=== PATIENT | female | born 1990 | race Caucasian/White ===

== ENCOUNTER 2018-12-28 16:47 | Inpatient (IN) | payer BC, OTHER ==
[~2018-12-28] VITALS: Ht 162.6 cm; Wt 133.6 kg
[~2018-12-28 16:47] MED LIST: CEPH500 PO; CIPR500 PO; DIPH50 PO; IBUP800 PO; OCELLA PO; ONDA4 PO; PRED20 PO
[2018-12-28 18:20] LABS: BASOPHILS ABSOLUTE AUTO 0.03 K/mm3 (0.00-0.23); BASOPHILS PERCENT AUTO 0 % (0-2); EOSINOPHILS ABSOLUTE AUTO 0.04 K/mm3 (0.00-0.68); EOSINOPHILS PERCENT AUTO 0 % (0-6); Hematocrit 41.9 % (33.0-51.0); Hemoglobin 14.1 g/dL (11.5-16.0); IMMATURE GRAN ABSOLUTE AUTO 0.05 K/mm3 (0.00-0.10); IMMATURE GRAN PERCENT AUTO 0 % (0-1); LYMPHOCYTES ABSOLUTE AUTO 1.58 K/mm3 (0.84-5.20); LYMPHOCYTES PERCENT AUTO 13 % (21-46); MONOCYTES ABSOLUTE AUTO 0.83 K/mm3 (0.16-1.47); MONOCYTES PERCENT AUTO 7 % (4-13); Mean Corpuscular HGB 29.1 pg (26.0-34.0); Mean Corpuscular HGB Conc 33.7 g/dL (31.5-36.5); Mean Corpuscular Volume 87 fL (80-100); Mean Platelet Volume 10.6 fL (9.1-12.4); NEUTROPHILS ABSOLUTE AUTO 9.83 K/mm3 (1.96-9.15); NEUTROPHILS PERCENT AUTO 80 % (41-73); Platelet Count 273 K/mm3 (150-400); RDW Coefficient Variation 14.6 % (11.7-14.2); RDW Standard Deviation 45.6 fL (35.1-46.3); Red Blood Cell Count 4.84 M/mm3 (3.80-5.20); White Blood Cell Count 12.36 K/mm3 (4.00-11.30)
[2018-12-29 05:16] LABS: PCO2 Cord - Arterial 50.9 mmHg (40-50); PO2 Cord - Arterial 15.5 mmHg (16-20); pH Cord - Arterial 7.32 (7.28-7.35)
[2018-12-29 05:17] LABS: PO2 Cord - Venous 20.9 mmHg (28-32); pH Umbilical Cord - Venous 7.34 (7.26-7.35)
--- NOTE | 2018-12-29 05:23 | NUR ---
12/29/18 0523 InoPearl A BABY BORN AT 0504. SEGMENT OF UMBILICAL CORD GIVEN TO RT. SAMPLE OF BLOOD FROM UMBILICAL CORD GIVEN TO FBP RN.
[2018-12-30 05:33] LABS: BASOPHILS ABSOLUTE AUTO 0.04 K/mm3 (0.00-0.23); BASOPHILS PERCENT AUTO 0 % (0-2); EOSINOPHILS ABSOLUTE AUTO 0.18 K/mm3 (0.00-0.68); EOSINOPHILS PERCENT AUTO 2 % (0-6); Hematocrit 32.4 % (33.0-51.0); Hemoglobin 10.6 g/dL (11.5-16.0); IMMATURE GRAN ABSOLUTE AUTO 0.07 K/mm3 (0.00-0.10); IMMATURE GRAN PERCENT AUTO 1 % (0-1); LYMPHOCYTES ABSOLUTE AUTO 1.42 K/mm3 (0.84-5.20); LYMPHOCYTES PERCENT AUTO 12 % (21-46); MONOCYTES ABSOLUTE AUTO 0.86 K/mm3 (0.16-1.47); MONOCYTES PERCENT AUTO 7 % (4-13); Mean Corpuscular HGB 29.9 pg (26.0-34.0); Mean Corpuscular HGB Conc 32.7 g/dL (31.5-36.5); Mean Platelet Volume 10.7 fL (9.1-12.4); NEUTROPHILS ABSOLUTE AUTO 9.65 K/mm3 (1.96-9.15); NEUTROPHILS PERCENT AUTO 79 % (41-73); Platelet Count 216 K/mm3 (150-400); RDW Coefficient Variation 14.9 % (11.7-14.2); RDW Standard Deviation 49.9 fL (35.1-46.3); Red Blood Cell Count 3.55 M/mm3 (3.80-5.20); White Blood Cell Count 12.22 K/mm3 (4.00-11.30)
[2018-12-30 05:35] LABS: Mean Corpuscular Volume 91 fL (80-100)
--- NOTE | 2018-12-30 11:00 | NUR ---
0800- PT STILL COMPLAINS OF RIGHT LEG BEING NUMB AT HER THIGH ONLY. FEET AND CALF FEELING NORMAL BUT VERY NUMB AND HEAVY FEELING WHEN LIFTING IT OFF THE BED. WILL CONSULT WITH PROVIDER WHEN MAKING ROUNDS.
--- NOTE | 2018-12-30 11:01 | NUR ---
09- JOSEPH ASSESSED RIGHT LEG AND IF NOT IMPROVING BY AFTERNOON WITH CALL DR JIM TO ASSESS.
--- NOTE | 2018-12-30 11:25 | NUR ---
1100- DR JIM IN HOUSE AND WAS THE ONE THAT PLACED HER EPIDURAL. UPDATED ON RIGHT THIGH STILL BEING NUMB. HE SAID TO TRY TO GET HER UP AND SEE HOW SHE DOES AND GIVE IT A LITTLE MORE TIME. WILL UPDATE BY THIS AFTERNOON IF IT DOESNT IMPROVE. PT HAS NO OTHER COMPLAINTS.
--- NOTE | 2018-12-30 13:56 | NUR ---
RIGHT THIGH CONTINUES TO FEEL NUMB AND HEAVY. 2 PEOPLE ASSIST AT BEDSIDE AND PT ABLE TO STAND LONG SHE DOESNT BEND HER KNEE. ASSISTED TO BATHROOM. VOID #1 AND LINENS CHANGED. WILL TRY FOR A SHOWER NEXT TIME. 2 PERSON ASSIST BACK TO BED. CALL LIGHT CLOSE AND WILL CALL WHEN NEEDING TO VOID.
--- NOTE | 2018-12-30 18:37 | NUR ---
PT UP AND AMBULATED TO BATHROOM AGAIN. LESS ASSISTANCE NEEDED AND PATIENT STATES HER RIGHT THIGH IS ALMOST FEELING NORMAL AGAIN. WILL CALL ONE MORE TIME BEFORE AMBULATION. LOCHIA SCANT.
[2018-12-31] MEDS ORDERED: Percocet 5-3251 EACH PO (10:36)
[2018-12-31] MEDS ORDERED: IBUP800 PO (10:36)
[2018-12-31] MEDS ORDERED: ACET325 PO (10:38)
[2018-12-31] MEDS ORDERED: DOCU100 PO (10:38)
[2018-12-31] MEDS ORDERED: LANOLIN397 GM TOP (10:40)
[2018-12-31] MEDS ORDERED: Milk Of Ma400 MG/5 M PO (10:40)
[2018-12-31] MEDS ORDERED: PRENATAL TABLE1 EAC2 PO (10:41)
== END 2018-12-31 12:45 | disposition home or self-care (01) | DRG 788 ==
LOC: OBS 16:47 → BC 16:47 → OBS 17:08 → BC 17:12
PROVIDERS: Obstetrics & Gynecology; ADMIT Nurse Practitioner Obstetrics & Gynecology
PROC: 3E0R3BZ Introduction of Anesthetic Agent into Spinal Canal, Percutaneous Approach (ICD-10-PCS; 2018-12-29)
PROC: 10D00Z1 Extraction of Products of Conception, Low, Open Approach (ICD-10-PCS; principal; 2018-12-29 07:00)
DX: O98.42 Viral hepatitis complicating childbirth (principal); B19.20 Unspecified viral hepatitis C without hepatic coma; O62.1 Secondary uterine inertia; Z3A.39 39 weeks gestation of pregnancy; Z37.0 Single live birth
CPT/HCPCS: 36415; 51702; 82803; 85025; 86850; 86900; 86901; C9113; J0690; J1885; J2001; J2405; J2590; J2765; J3010; J7120

== ENCOUNTER 2020-04-25 02:41 | Emergency (ER) | payer OTHER ==
[~2020-04-25] VITALS: Ht 162.6 cm; Wt 90.7 kg
[~2020-04-25 02:41] MED LIST changes: +ACET325 PO; +DOCU100 PO; +LANOLIN397 GM TOP; +Milk Of Ma400 MG/5 M PO; +PRENATAL TABLE1 EAC2 PO; +Percocet 5-3251 EACH PO
[2020-04-25 03:25] LABS: BASOPHILS ABSOLUTE AUTO 0.08 K/mm3 (0.00-0.23); BASOPHILS PERCENT AUTO 1 % (0-2); EOSINOPHILS ABSOLUTE AUTO 0.38 K/mm3 (0.00-0.68); EOSINOPHILS PERCENT AUTO 4 % (0-6); Hematocrit 39.1 % (33.0-51.0); Hemoglobin 13.5 g/dL (11.5-16.0); IMMATURE GRAN ABSOLUTE AUTO 0.04 K/mm3 (0.00-0.10); IMMATURE GRAN PERCENT AUTO 0 % (0-1); LYMPHOCYTES ABSOLUTE AUTO 2.42 K/mm3 (0.84-5.20); LYMPHOCYTES PERCENT AUTO 25 % (21-46); MONOCYTES ABSOLUTE AUTO 0.73 K/mm3 (0.16-1.47); MONOCYTES PERCENT AUTO 8 % (4-13); Mean Corpuscular HGB 30.5 pg (26.0-34.0); Mean Corpuscular HGB Conc 34.5 g/dL (31.5-36.5); Mean Corpuscular Volume 88 fL (80-100); Mean Platelet Volume 10.4 fL (9.1-12.4); NEUTROPHILS ABSOLUTE AUTO 6.09 K/mm3 (1.96-9.15); NEUTROPHILS PERCENT AUTO 63 % (41-73); Platelet Count 266 K/mm3 (150-400); RDW Standard Deviation 38.5 fL (35.1-46.3); Red Blood Cell Count 4.43 M/mm3 (3.80-5.20); White Blood Cell Count 9.74 K/mm3 (4.00-11.30)
[2020-04-25 03:43] LABS: Alanine Aminotransfer (ALT/SGP 124 U/L (12-78); Albumin, Blood 3.2 g/dL (3.4-5.0); Albumin/Globulin Ratio 0.7 (0.8-1.8); Alk Phos 60 U/L (50-136); Anion Gap 7 mmol/L (6-16); Aspartate Aminotrans (AST/SGOT 58 U/L (12-37); Bilirubin, Total 0.3 mg/dL (0.1-1.0); Blood Urea Nitrogen 12 mg/dL (8-24); Bun/Creatinine Ratio 21.1 (12.0-20.0); CO2, Blood 24 mmol/L (21-32); Chloride, Blood 109 mmol/L (98-108); Creatinine, Blood 0.57 mg/dL (0.40-1.00); Globulin, Blood 4.3 g/dL (2.2-4.0); Glomerular Filtration Rate >60 (60-); Glucose, Blood 96 mg/dL (70-99); Potassium, Blood 3.8 mmol/L (3.5-5.5); Sodium, Blood 140 mmol/L (136-145); Total Protein, Blood 7.5 g/dL (6.4-8.2)
[2020-04-25 03:52] LABS: Source, Urine Clean Catch
[2020-04-25 03:55] LABS: Appearance, Urine Cloudy (Clear); Bilirubin, Urine Neg (Neg); Blood, Urine 5+ (Neg); Color, Urine Red (P-Yellow); Glucose Qualitative, Urine Neg (Neg); Ketones, Urine 1+ (Neg); Leukocyte Esterase, Urine 1+ (Neg); Nitrite, Urine Neg (Neg); Protein, Urine 4+ (Neg); Specific Gravity, Urine 1.025 (1.003-1.022); Urobilinogen, Urine NORM (Normal)
[2020-04-25 04:05] LABS: Bacteria Mod /hpf; Red Blood Cells, Urine TNTC /hpf (0-2); Squamous Epithelial Cells Not Seen /hpf (Few)
== END 2020-04-25 04:25 | disposition home or self-care (01) ==
LOC: ER 02:41
PROVIDERS: Emergency Medicine
DX: O20.9 Hemorrhage in early pregnancy, unspecified (principal); O99.891 Other specified diseases and conditions complicating pregnancy; R10.33 Periumbilical pain; Z3A.13 13 weeks gestation of pregnancy; Z88.8 Allergy status to other drugs, medicaments and biological substances; Z87.891 Personal history of nicotine dependence
CPT/HCPCS: 36415; 76801; 80053; 81001; 85025; 87086; 96360; 99284-25; J7030